=== PATIENT | female | born 1990 | race Caucasian/White ===

== ENCOUNTER 2018-08-02 06:54 | Day surgery (SDC) | payer BC ==
[2018-08-02] MEDS ORDERED: BUPIVACAINE 0.25% (MPF) 30 ML INJ (07:21)
[2018-08-02] MEDS: POLYMYXIN/BACITRACIN 1L IRRIG (07:47)
[2018-08-02] MEDS ORDERED: LIDOCAINE 2% (SDV) 5 ML INJ (07:47)
[2018-08-02] MEDS: GENTAMICIN 80 MG INJ (07:47)
[2018-08-02] MEDS ORDERED: PROPOFOL 20 ML ×2 (07:47→09:53)
[2018-08-02] MEDS ORDERED: MIDAZOLAM 1 MG/ML 2 ML INJ (07:48)
[2018-08-02] MEDS ORDERED: FENTAnyl 50 MCG/ML VIAL (07:48)
[2018-08-02] MEDS ORDERED: HYDROCODONE/APAP (5/325) TAB PO (08:30)
[2018-08-02] MEDS ORDERED: morphine 2 MG INJ IV (08:30)
[2018-08-02] MEDS ORDERED: ONDANSETRON 4 MG INJ IV ×2 (08:30→10:30)
[2018-08-02] MEDS ORDERED: ACETAMINOPHEN 325 MG TAB PO (08:30)
[2018-08-02] MEDS ORDERED: CEFAZOLIN 1 GM INJ (08:38)
[2018-08-02] MEDS ORDERED: DEXAMETHASONE 4 MG/ML 5 ML INJ (08:39)
[2018-08-02] MEDS ORDERED: ONDANSETRON 4 MG INJ (08:39)
[2018-08-02] MEDS ORDERED: HYDROmorphONE 2 MG/ML SYG (08:56)
[2018-08-02] MEDS ORDERED: GLYCOPYRROLATE 0.4 MG INJ (09:04)
[2018-08-02] MEDS: BUPIVACAINE 0.5%/EPI (SDV) 30 ML INJ (09:16)
[2018-08-02] MEDS: SODIUM CL BACTERIOSTATIC 30 ML INJ (09:31)
[2018-08-02] MEDS: BUPIVACAINE LIPOSOME/PF 266 MG/20 ML VIAL INFIL (09:31)
[2018-08-02] MEDS ORDERED: FENTAnyl 50 MCG/ML VIAL IV (10:30)
[2018-08-02] MEDS ORDERED: OXYCODONE/ACETAMINOPHEN (5/325) TAB PO (10:30)
[2018-08-02] MEDS ORDERED: HYDROmorphONE 1 MG/5 ML IV SYRINGE IV (10:30)
== END 2018-08-02 11:50 | disposition home or self-care (01) ==
LOC: SDS 06:54
DX: F64.8 Other gender identity disorders (principal)
CPT/HCPCS: 19340